=== PATIENT | female | born 1990 | race Caucasian/White ===

== ENCOUNTER → 2016-11-27 | Outpatient (CLI) | payer BC ==
[2016-11-27 15:06] LABS: GLUCOLA DOSE 50 Grams
[2016-11-27 15:33] LABS: PATIENT HEIGHT 154.9 cm
[2016-11-27 16:08] LABS: URINE TOTAL PROTEIN 9.2 mg/dl (0-11.9)
[2016-11-27 16:33] LABS: HEMATOCRIT 33.9 % (37-47); MEAN CELL VOLUME 92.4 fL (80-100); MEAN CORPUSCULAR HEMOGLOBIN 31.3 pg (25-34); MEAN CORPUSCULAR HGB CONC 33.9 g/dl (32-36); MEAN PLATELET VOLUME 9.9 fL (7.4-10.4); PLATELET COUNT 224 K/uL (130-400); RED BLOOD COUNT 3.67 M/uL (4.2-5.4); WHITE BLOOD COUNT 8.31 K/uL (4.8-10.8)
[2016-11-27 16:57] LABS: ALT/SGPT 19 U/L (12-78); AST/SGOT 11 U/L (15-37)
[2016-11-27 17:00] LABS: ALKALINE PHOSPHATASE 59 U/L (45-117)
[2016-11-27 17:07] LABS: URINE TOTAL PROTEIN CALC 110.4 mg/24 hr (0-149.1)
[2016-11-27 17:07] LABS: GTGD 50 Grams
[2016-11-27 17:08] LABS: CREATININE 0.5 mg/dl (0.6-1.2)
== END | disposition home or self-care (01) ==
LOC: C.LAB1850 14:51
PROVIDERS: ATTEND Obstetrics & Gynecology
DX: O09.299 Supervision of pregnancy with other poor reproductive or obstetric history, unspecified trimester (principal); O34.219 Maternal care for unspecified type scar from previous cesarean delivery

== ENCOUNTER → 2017-02-19 | Outpatient (CLI) | payer BC ==
[2017-02-19 16:58] LABS: GTGD 50 Grams
[2017-02-19 16:59] LABS: HEMATOCRIT 31.6 % (37-47)
[2017-02-19 18:37] LABS: URINE APPEARANCE CLEAR (CLEAR); URINE BILIRUBIN NEG (NEG); URINE COLOR YELLOW; URINE EPITHELIAL CELL AUTO >30 /lpf (0-5); URINE NITRITE NEG (NEG); URINE PH 6.5 (4.5-7.5); UROBILINOGEN NEG (NEG)
[2017-02-19 18:43] LABS: MANUAL MICROSCOPIC REQUIRED? NO; REVIEW REQ? NO
== END | disposition home or self-care (01) ==
LOC: C.LAB1850 15:19
PROVIDERS: ATTEND Obstetrics & Gynecology
DX: O09.293 Supervision of pregnancy with other poor reproductive or obstetric history, third trimester (principal)

== ENCOUNTER → 2017-04-16 | Outpatient (CLI) | payer OTHER | END | disposition home or self-care (01) | LOC: C.LABSPEC 17:31 | PROVIDERS: ATTEND Obstetrics & Gynecology | DX: O09.293 Supervision of pregnancy with other poor reproductive or obstetric history, third trimester (principal); Z3A.00 Weeks of gestation of pregnancy not specified ==

== ENCOUNTER 2017-04-30 15:10 | Outpatient (CLI) | payer OTHER ==
[~2017-04-30] VITALS: Ht 154.9 cm; Wt 76.5 kg
[2017-04-30 16:28] LABS: BASO % 0.2 %; BASO ABS # 0.02 K/uL (0-0.2); EOS % 0.7 %; EOS ABS # 0.08 K/uL (0-0.5); HEMATOCRIT 34.2 % (37-47); HEMOGLOBIN 11.7 g/dL (12.0-16.0); IG# 0.03 K/uL (0.00-0.02); LYMPH % 19.4 %; LYMPH ABS # 2.14 K/uL (1.2-3.4); MEAN CELL VOLUME 89.5 fL (80-100); MEAN CORPUSCULAR HEMOGLOBIN 30.6 pg (25-34); MEAN CORPUSCULAR HGB CONC 34.2 g/dl (32-36); MEAN PLATELET VOLUME 9.7 fL (7.4-10.4); MONO % 8.4 %; MONO ABS # 0.93 K/uL (0.11-0.59); NEUT ABS # 7.84 K/uL (1.4-6.5); PLATELET COUNT 236 K/uL (130-400); RED CELL DISTRIBUTION WIDTH CV 13.6 % (11.5-14.5); RED CELL DISTRIBUTION WIDTH SD 44.1 fL (36.4-46.3); WHITE BLOOD COUNT 11.04 K/uL (4.8-10.8)
[2017-04-30 16:54] LABS: ALBUMIN 2.6 gm/dl (3.4-5.0); ALT/SGPT 12 U/L (12-78); AST/SGOT 13 U/L (15-37); BLOOD UREA NITROGEN 13 mg/dl (7-18); CALCIUM 8.7 mg/dl (8.5-10.1); CARBON DIOXIDE 23 mmol/L (21-32); CREATININE 0.62 mg/dl (0.60-1.20); GLUCOSE 91 mg/dl (70-99); POTASSIUM 3.7 mmol/L (3.5-5.1); SODIUM 135 mmol/L (136-145); URIC ACID 5.7 mg/dl (2.6-7.2)
[2017-04-30 16:56] LABS: ALKALINE PHOSPHATASE 160 U/L (45-117); TOTAL PROTEIN 6.8 gm/dl (6.4-8.2)
[2017-04-30 17:08] VITALS: Ht 154.9 cm; Wt 76.5 kg
[2017-05-08] MEDS ORDERED: MISC-836 (10:18)
== END 2017-04-30 17:35 | disposition home or self-care (01) ==
LOC: C.LD 15:10 → C.OPB 15:10
PROVIDERS: ATTEND Obstetrics & Gynecology
DX: O16.3 Unspecified maternal hypertension, third trimester (principal); O62.9 Abnormality of forces of labor, unspecified; Z3A.38 38 weeks gestation of pregnancy

== ENCOUNTER 2017-05-06 00:36 | Inpatient (IN) | payer OTHER ==
[~2017-05-06] VITALS: Ht 154.9 cm; Wt 74.4 kg
[2017-05-06] MEDS ORDERED: LACTATED RINGER'S 1000ML 1,000 ML IV PRN ×2 (01:08→02:01)
[2017-05-06] MEDS ORDERED: PRENTAB26 PO (01:09)
[2017-05-06 01:11] VITALS: Ht 154.9 cm; Wt 74.4 kg
[2017-05-06 01:32] LABS: HEMATOCRIT 35.5 % (37-47); HEMOGLOBIN 12.3 g/dL (12.0-16.0); MEAN CELL VOLUME 89.6 fL (80-100); MEAN CORPUSCULAR HEMOGLOBIN 31.1 pg (25-34); MEAN CORPUSCULAR HGB CONC 34.6 g/dl (32-36); PLATELET COUNT 266 K/uL (130-400); RED CELL DISTRIBUTION WIDTH CV 13.5 % (11.5-14.5); WHITE BLOOD COUNT 12.46 K/uL (4.8-10.8)
[2017-05-06] MEDS ORDERED: LACTATED RINGER'S 1000ML 1,000 ML IV SCH (02:01)
[2017-05-06] MEDS: LACTATED RINGER'S 1000ML 1,000 ML IV SCH ×3 (02:07→11:34)
[2017-05-06] MEDS ORDERED: LACTATED RINGER'S 1000ML 500 ML IV PRN ×2 (06:48→10:14)
[2017-05-06] MEDS ORDERED: OXYTOCIN 30 UNITS/500ML NSS IV ONE (06:50)
[2017-05-06] MEDS ORDERED: OXYTOCIN 30 UNITS/500ML NSS IV PRN ×2 (07:00→18:30)
[2017-05-06] MEDS ORDERED: BUPIVACAINE 0.25% 30 ML VIAL ONE (08:05)
[2017-05-06] MEDS ORDERED: EpHEDrine SULFATE INJ 50 MG/ML AMP ONE (08:05)
[2017-05-06] MEDS ORDERED: FENTANYL 2MCG/ML ROPIV 1.25MG/ML 100ML BAG EPI ONE (08:05)
[2017-05-06] MEDS ORDERED: FENTANYL CITRATE INJ 50 MCG/1 ML 2 ML VIAL ONE (08:06)
[2017-05-06] MEDS ORDERED: NALOXONE HCL INJ 1 MG in SODIUM CHLORIDE 0.9% 1000ML 1,000 ML IV PRN ×4 (10:14)
[2017-05-06] MEDS ORDERED: DiphenhydrAMINE HCL 50 MG/ML VIAL IV PRN (10:15)
[2017-05-06] MEDS ORDERED: EpHEDrine SULFATE INJ 50 MG/ML AMP IV PRN (10:15)
[2017-05-06] MEDS ORDERED: NALBUPHINE HCL INJ 10 MG/ML AMP IV PRN (10:15)
[2017-05-06] MEDS ORDERED: METOCLOPRAMIDE HCL INJ 20 MG in SODIUM CHLORIDE 0.9% 50ML 50 ML IV PRN (10:15)
[2017-05-06] MEDS ORDERED: NALOXONE HCL INJ 0.4 MG/1 ML VIAL/CARP IV PRN (10:15)
[2017-05-06] MEDS ORDERED: ONDANSETRON INJ 2 MG/ML 2 ML VIAL IV PRN (10:15)
[2017-05-06] MEDS ORDERED: FENTANYL 2MCG/ML ROPIV 1.25MG/ML 100ML BAG EPI PRN (10:15)
[2017-05-06] MEDS ORDERED: PROMETHAZINE HCL INJ 25 MG in SODIUM CHLORIDE 0.9% 50ML 50 ML IV PRN (10:15)
[2017-05-06] MEDS ORDERED: HYDROCORTISONE ACETATE 25 MG SUPP PR PRN (18:30)
[2017-05-06] MEDS ORDERED: OXYCODONE/ACETAMINOPHEN 5-325 TAB PO PRN (18:30)
[2017-05-06] MEDS ORDERED: SUPERCREAM 0.870 % 15GM JAR EXT PRN (18:30)
[2017-05-06] MEDS ORDERED: BENZOCAINE 20% AER SPR 82.5 GM CAN EXT PRN (18:30)
[2017-05-06] MEDS ORDERED: LANOLIN OINT EXT PRN (18:30)
--- NOTE | 2017-05-06 18:48 | Anesthesia Procedure Note ---
Anesthesia Epidural Removal Nt Date & Time May 06, 2017 at 18:47 Vital Signs Pain Intensity: 7.0 Notes Mental Status: alert / awake / arousable, participated in evaluation Nausea / Vomiting: adequately controlled Pain: adequately controlled Airway Patency, RR, SpO2: stable & adequate BP & HR: stable & adequate Hydration State: stable & adequate Neuraxial Anesthesia: was administered Anesthetic Complications: no major complications apparent, pt satisfied with anesthetic care Epidural: removed without complications, with tip intact
--- NOTE | 2017-05-06 19:27 | DELIVERY SUMMARY ---
DATE OF OPERATION: 05/06/2017 PREDELIVERY DIAGNOSIS: 1. 27-year-old -0-0-1 at 39 weeks gestation with spontaneous rupture of membranes and spontaneous labor. 2. History of section x1. POSTDELIVERY DIAGNOSIS: Same. PROCEDURE: Vaginal after section and repair of second degree peroneal laceration. ESTIMATED BLOOD LOSS: 300 mL. COMPLICATIONS: None. FINDINGS: Viable female with Apgars 8 and 9, weight pending. Please see nursery records. DESCRIPTION OF DELIVERY: The patient progressed to complete with epidural anesthesia. She then began to push. She spontaneously vaginally delivered a viable from the cephalic presentation with the head in left occiput anterior position. There is a nuchal cord x2 that was easily reduced. There was a large amount of meconium at the time of delivery. The anterior shoulder followed by the posterior shoulder followed by the body were delivered. The baby was placed on mother's abdomen. The baby was stimulated and dried and the cord was doubly clamped and cut and the baby was handed off to the waiting pediatrics team. A cord segment was obtained for cord gases. The placenta was then delivered spontaneously intact with a 3-vessel cord. Pitocin was given. The uterus and vagina were cleared of all clots and debris. The bladder was emptied with a red rubber catheter. The cervix, vagina and perineum were inspected and the second degree perineal laceration was noted and repaired in standard fashion with 3-0 Vicryl. Rectal exam following the repair revealed no sutures or lacerations in the rectum. The patient and baby tolerated the delivery well and are recovering in the room in stable and good condition. I attest to the content of the Intraoperative Record and any orders documented therein. Any exception s are noted below.
[2017-05-06] MEDS: IBUPROFEN 600 MG TAB PO PRN (20:17)
[2017-05-06 20:50] VITALS: BP 122/79; PULSE 77; TEMP 36.6
[2017-05-07 00:45] VITALS: BP 112/72; PULSE 56; TEMP 36.5
[2017-05-07] MEDS: IBUPROFEN 600 MG TAB PO PRN ×4 (00:45→22:20)
[2017-05-07 05:05] VITALS: BP 147/83; PULSE 62; TEMP 36.4
--- NOTE | 2017-05-07 06:54 | OB/GYN Progress Note ---
LANGUAGE PATH Progress Note Date of Service May 07, 2017. Subjective conversation w/ patient, physical exam, chart review, lab review Ambulation: ambulating normally Voiding: no voiding problems Passing Gas: Yes Diet Tolerance: Regular Diet Lochia: Small Feeding Type: Breast Feeding Pain: cramping with feeding Review of Systems Constitutional: No fever, No chills Respiratory: No cough, No shortness of breath Cardiac: No chest pain, No palpitations Abdomen: No pain, No nausea, No vomiting Female : No dysuria Objective Vital Signs Date Time Temp Pulse Resp B/P (MAP) Pulse Ox O2 Delivery O2 Flow Rate FiO2 05/07/17 05:05 36.4 62 20 147/83 (104) Room Air 05/07/17 00:45 Room Air 05/07/17 00:45 36.5 56 20 112/72 (85) Room Air 05/06/17 20:50 36.6 77 20 122/79 (93) Room Air Physical Exam General Appearance: WELL-APPEARING, WD/WN, NO APPARENT DISTRESS Respiratory/Chest: lungs clear, normal breath sounds Cardiovascular: regular rate, rhythm, no murmur Abdomen: non tender, soft Fundus: Firm Extremities: normal inspection, no pedal edema, no calf tenderness Laboratory Results Last 24 Hours Test 05/07/17 06:43 Assessment and Plan Post- Day Number: 1 Continue Routine Care: now 2 vaginal delivery on 05/06/17 1750 @39.4 wk GBS-/A+/RI Pt doing well clinically. BP elevated overnight, 147/83. Hgb 12.3 on admission, today pending. No signs or symptoms of anemia. Plan; 1. Continue pp care; ambulate, support breast feeding, control pain, monitor lochia 2. Serial BP throughout the morning. Pt is Otherwise ready for discharge. Will discuss with Dr. Milton during attending rounds. Resident Physician Supervision Note: I was present with Dr. Perez during the history and exam. I discussed the case with the resident and agree with the findings and plan as documented in the note. Any exceptions or clarifications are listed here: PPD#1 doing well. Anticipate discharge tomorrow. Routine care. Documented By: Amber Milton
[2017-05-07 06:59] LABS: HEMATOCRIT 29.7 % (37-47)
[2017-05-07 08:00] VITALS: BP 111/74; PULSE 58; TEMP 36.3; O2SAT 96
[2017-05-07 12:00] VITALS: BP 120/81; PULSE 87; TEMP 36.6
[2017-05-07 15:45] VITALS: BP 123/79; PULSE 66; TEMP 36.3; O2SAT 99
[2017-05-07] MEDS ORDERED: BISACODYL 5 MG TABEC PO SCH (20:00)
[2017-05-07] MEDS: DOCUSATE SODIUM 100 MG CAP PO SCH ×2 (20:02→20:13)
[2017-05-08] VITALS: BP 117/68; PULSE 76; TEMP 36.7
--- NOTE | 2017-05-08 05:59 | Discharge Instructions ---
Discharge Instructions Date of Service May 08, 2017. Admission Reason for Admission: LABOR Discharge Discharge Diagnosis / Problem: Vaginal delivery Discharge Goals Goal(s): Routine recovery after delivery Medications Continue Dispensed Medications: supercream, dermaplast, tucks, lansinoh Activity Recommendations Activity Limitations: per Instructions/Follow-up section . Instructions / Follow-Up Instructions / Follow-Up ACTIVITY RECOMMENDATIONS: * Gradual return to full activity over the next 2-3 weeks. * No lifting - nothing heavier than baby over the next 2-3 weeks. * Do not engage in vigorous exercise, sexual activity or sports until cleared by your physician. * Do not drive or operate any motorized equipment until cleared by your physician. * You may shower/bathe daily. MEDICATIONS: For discomfort or pain, you may use Acetaminophen (Tylenol), Ibuprofen (Advil), or Naproxen (Aleve) following the package directions. For constipation you may use Colace following the package directions. BREAST CARE: If you are not breast feeding: * Wear a supportive bra 24 hours a day for one to two weeks. * Avoid stimulating your breasts and nipples as much as possible during the first few weeks after delivery. * When taking a shower, have the warm water hit your back, not breasts. * When your breasts feel full, apply ice packs. Usually three to four times a day helps ease the discomfort. * Take a mild pain medication (Tylenol / Motrin) when you are uncomfortable. If breast feeding: * Use breast milk to lubricate nipples. Lansinoh cream may be used for sore nipples. You do not need to remove cream prior to breast feeding. If using a different brand of cream, check the label for directions regarding removal of cream prior to nursing. * Wear a supportive bra. * If having problems with breasts or breast feeding, call a polymer materials consultant or your health care provider. EPISIOTOMY CARE: After delivery, if you have an episiotomy (stitches), the following steps will ease discomfort and aid healing. * For the first 24 hours after delivery, place ice packs next to your episiotomy to help reduce swelling. * After the first 24 hour-period, sitz baths, either portable or in the tub, are suggested. A shower with a shower arm sprayed over the episiotomy may be comforting. * Mandie care should be done after each voiding and bowel movement. Squirt warm water from a plastic bottle over the perineum (region of the body between the anus and urinary opening) and pat dry. * Use Dermoplast to ease discomfort. Shake container. [place] directly over the episiotomy. Place a Tucks on a clean sanitary pad next to your episiotomy. SPECIAL CARE INSTRUCTIONS: When you are discharged from the hospital, it is important for you to follow the instructions listed below: * During the first week at home, you should be able to care for yourself and your baby. In addition, the usual light household activities are encouraged. * Limit your activities to the way you feel. Do not try to clean the house or move furniture. Be sensible. * If you actively engage in sports and have done so up until the time of your delivery, you may resume these activities as soon as you feel able. This may take up to one month or even longer. Use good judgment. * Continue to take your vitamins for at least six weeks after the of your baby. * Your diet need not be limited unless you were on a special diet before your delivery. Breast-feeding mothers need around 2500 calories per day and at least 64-80 ounces of fluid per day (8 to 10 glasses). * You should eat foods from the four major food groups. Crash diets or fad diets are to be avoided. Eating lean meats, fresh fruits and vegetables, low-fat dairy products, high fiber foods and a regular exercise program, will help you get back to your pre- weight without putting your health at risk. * Constipation is sometimes a problem after delivery. Take a mild laxative as needed. If breast feeding, Milk of Magnesia is acceptable to use. You may use a suppository or Fleets enema if no episiotomy. * A daily shower or tub bath is suggested. Be sure to thoroughly and gently dry the perineum. * A bloody vaginal discharge will usually continue until around four weeks post . A small amount of bleeding may continue for as long as six weeks. Vaginal discharge changes from the bright red bleeding after delivery to pink then brownish and finally yellowish-pink before becoming white and disappearing. * Bleeding may increase with activity. Your first period may come in 4-8 weeks. If you are breast feeding, your period may be delayed even longer. * [place] (sex) can begin whenever both you and your partner feel comfortable and do not have any form of genital infection. It is recommended that you wait at least six weeks for internal and external healing to occur. If you have questions, please talk to your health care practitioner. A condom should be used to prevent infection and . * Foreplay, gentle intercourse and lubrication is very important the first several times to prevent pain. A water-based lubricant such as K-Y jelly or Astroglide may be used. * If you have RH negative blood and your baby is RH positive, you will receive RHOGAM by injection prior to discharge. The nurse will give you a card to keep with you that has the date and place that you received RHOGAM after delivery. * During your care, you had a Rubella screen done to check for the presence of rubella antibodies in your blood. If your test was negative, you will receive a Rubella vaccine prior to discharge. This vaccine may cause a fever, soreness at the injection site and flu-like symptoms. If these symptoms persist, notify your health care practitioner. is not advised for one month after a Rubella vaccine. * Verbalizes understanding of car seat law as reviewed with patient nursing. * Car Seat hand-out given and reviewed with patient by nursing. * Shaken baby information reviewed with patient by nursing. Call you doctor if: * Heavy bleeding (saturating several pads an hour) or passing clots the size of your fist. * A fever >101 degrees F (38.3 degrees C) on two occasions four hours apart and /or chills. * Unusual pain in the pelvic or vaginal areas. * "Baby Blues" lasting longer than two weeks. If you have any questions or concerns, call your health care practitioner at . FOLLOW UP VISIT: * Please call the office at to schedule a 6 week examination. It is important you keep this appointment. It is important for you to make arrangements for either yearly or twice yearly check-ups thereafter. Current Hospital Diet Patient's current hospital diet: Regular OB Diet Discharge Diet Recommended Diet: Regular OB Diet Pending Studies Studies pending at discharge: no Medical Emergencies . Who to Call and When: Medical Emergencies: If at any time you feel your situation is an emergency, please call 911 immediately. . Non-Emergent Contact Non-Emergency issues call your: [facility] [employer] . . "Provider Documentation" section prepared by Kristofer Perez. . VTE Core Measure Inpt VTE Proph given/why not?: Treatment not indicated
--- NOTE | 2017-05-08 06:03 | OB/GYN Progress Note ---
PETROLE[employer] GEOLOGIST Progress Note Date of Service May 08, 2017. Subjective conversation w/ patient, physical exam, chart review, lab review Ambulation: ambulating normally Voiding: no voiding problems Passing Gas: Yes Diet Tolerance: Regular Diet Lochia: Small Feeding Type: Breast Feeding Review of Systems Constitutional: No fever, No chills Respiratory: No cough, No shortness of breath Cardiac: No chest pain Abdomen: No pain, No nausea, No vomiting Female : No dysuria Objective Vital Signs Date Time Temp Pulse Resp B/P (MAP) Pulse Ox O2 Delivery O2 Flow Rate FiO2 05/08/17 00:00 36.7 76 18 117/68 (84) Room Air 05/08/17 00:00 Room Air 05/07/17 15:45 99 Room Air 05/07/17 15:45 36.3 66 18 123/79 (94) 99 Room Air 05/07/17 12:00 36.6 87 18 120/81 (94) Room Air 05/07/17 08:00 Room Air 05/07/17 08:00 36.3 58 18 111/74 (86) 96 Room Air Physical Exam General Appearance: WELL-APPEARING, WD/WN, NO APPARENT DISTRESS Respiratory/Chest: normal breath sounds, no respiratory distress Cardiovascular: regular rate, rhythm, no murmur Abdomen: non tender, soft Fundus: Firm Extremities: no pedal edema, no calf tenderness Laboratory Results Last 24 Hours Test 05/07/17 06:43 Hemoglobin 10.0 g/dL Hematocrit 29.7 % Assessment and Plan Post- Day Number: 2 Continue Routine Care: now 2 vaginal delivery on 05/06/17 1750 @39.4 wk GBS-/A+/RI. Pt doing well clinically. Hgb 12.3 on admission, 10 on 05/07. No signs or symptoms of anemia. Vitals reviewed and WNL. Plan; 1. Continue pp care; ambulate, support breast feeding, control pain, monitor lochia 2. Discharge instructions discussed. Dc today. Resident Physician Supervision Note: I interviewed and examined the patient. Discussed with Dr. Perez and agree with findings and plan as documented in the note. Any exceptions or clarifications are listed here: Doing well, plan d/c, instructions given. Documented By: Yolande Bravo
[2017-05-08] MEDS ORDERED: BISACODYL 10 MG SUPP PR PRN (07:00)
[2017-05-08 08:10] VITALS: BP 102/65; PULSE 80; TEMP 36.4
[2017-05-08] MEDS: DOCUSATE SODIUM 100 MG CAP PO SCH (08:20)
[2017-05-08 10:00] VITALS: BP_DIAS 65; PULSE 80; TEMP 36.4
[2017-05-08] MEDS ORDERED: MISC-696 (10:18)
== END 2017-05-08 10:25 | disposition home or self-care (01) | DRG 775 ==
LOC: C.LD 00:36 → C.OPB 00:36 → C.LD 01:10 → C.OBG 20:32 → EDSTATUS 05-09 00:35
PROVIDERS: ADMIT Obstetrics & Gynecology; ATTEND Obstetrics & Gynecology
PROC: 10E0XZZ Delivery of Products of Conception, External Approach (ICD-10-PCS; principal; 2017-05-06)
PROC: 0KQM0ZZ Repair Perineum Muscle, Open Approach (ICD-10-PCS; principal; 2017-05-06)
DX: O70.1 Second degree perineal laceration during delivery (principal); O77.0 Labor and delivery complicated by meconium in amniotic fluid; O69.81X0 Labor and delivery complicated by cord around neck, without compression, not applicable or unspecified; Z3A.39 39 weeks gestation of pregnancy; Z37.0 Single live birth

== ENCOUNTER 2019-06-27 01:44 | Inpatient (IN) ==
[2019-06-27] MEDS ORDERED: OXYTOCIN 30 UNITS/500 ML BAG IV PRN ×3 (02:21→09:01)
[2019-06-27] MEDS ORDERED: fentaNYL 2MCG/ML ROPIV 1.25MG/ML 100 ML BAG EPI ONE (02:36)
[2019-06-27] MEDS ORDERED: fentaNYL citrate 100 MCG/2 ML VIAL ONE (02:36)
[2019-06-27] MEDS ORDERED: ePHEDrine sulfate 50 MG/ML AMP ONE (02:36)
[2019-06-27] MEDS ORDERED: BUPIVACAINE 0.25% 30 ML VIAL ONE (02:36)
[2019-06-27] MEDS: LACTATED RINGER'S 1,000 ML IV PRN ×2 (02:38→05:27)
[2019-06-27 02:45] LABS: Hematocrit (blood only) 34.8 % (37-47); Hemoglobin 11.3 g/dL (12.0-16.0); Mean Corpuscular Hemoglobin 28.8 pg (25-34); Mean Corpuscular Volume 88.8 fL (80-100); Platelet Count 254 K/uL (130-400); RDW Coefficient of Variation 15.3 % (11.5-14.5); RDW Standard Deviation 49.3 fL (36.4-46.3); Red Blood Count 3.92 M/uL (4.2-5.4); White Blood Count 9.38 K/uL (4.8-10.8)
[2019-06-27 03:03] LABS: Mean Corpuscular Hgb Conc 32.5 g/dL (32-36)
--- NOTE | 2019-06-27 03:28 | Anesthesiology Consultation ---
Date of Service June 27, 2019 Assessment & Plan Chart Review Chart Review: Acceptable Risk for Labor Epidural Consults Requested none History Height/Weight Height: 5 ft 1 in Weight: 81.647 kg Allergies Allergy/AdvReac Type Severity Reaction Status Date / Time No Known Allergies Allergy Verified 06/23/19 15:47 Medications Home Medications Medication Instructions Recorded Confirmed Last Taken acetaminophen 325 mg tablet 650 mg/kg PO Q4 PRN tab 11/30/18 06/27/19 06/26/19 09:00 aspirin 81 mg tablet,delayed 81 mg PO DAILY 04/07/19 06/27/19 06/26/19 09:00 release ferrous sulfate [Iron (ferrous 325 mg PO DAILY 06/27/19 06/27/19 06/26/19 09:00 sulfate)] pedi multivit no.7-folic acid 2 mcg PO DAILY 06/27/19 06/27/19 06/26/19 09:00 [Flintstones Tab Chew] Active Medications Generic Name Dose Route Start Last Admin Trade Name Freq PRN Reason Stop Dose Admin Lactated Ringer's 1,000 mls @ 125 mls/hr 06/27/19 02:21 06/27/19 03:20 Lr IV 06/29/19 02:20 125 mls/hr .Q8H PRN Infusion L&D Protocol Protocol Past Medical History Medical History History of anxiety History of migraine History of pre-eclampsia History of varicella Past Family History Family History Grandmother (Maternal) Diabetes Mother Hypertension Thyroid disease Brother Thyroid disease Past Surgical History Surgical History S/P section S/P wisdom tooth extraction Social History Smoking Status: Former smoker tobacco type: cigarettes Hx Alcohol Use: No Hx Substance Use: No Physical Exam Vital Signs Last Vital Signs Temp 36.4 C L 06/27/19 02:00 Pulse 65 06/27/19 03:26 Resp 18 06/27/19 03:25 BP 126/79 06/27/19 03:26 Pulse Ox 97 06/27/19 03:23 Testing Laboratory Results 06/27/19 02:28
[2019-06-27] MEDS ORDERED: DiphenhydrAMINE HCL 50 MG/ML VIAL IV PRN (03:30)
[2019-06-27] MEDS ORDERED: ONDANSETRON INJ 2 MG/ML 2 ML VIAL IV PRN (03:30)
[2019-06-27] MEDS ORDERED: NALOXONE HCL 1 MG in SODIUM CHLORIDE 0.9% 1000ML 1,000 ML IV PRN (03:30)
[2019-06-27] MEDS ORDERED: ePHEDrine sulfate 50 MG/ML AMP IV PRN (03:30)
[2019-06-27] MEDS ORDERED: NALOXONE HCL 0.4 MG/1 ML VIAL/CARP IV PRN (03:30)
[2019-06-27] MEDS ORDERED: NALBUPHINE HCL INJ 10 MG/ML AMP IV PRN (03:30)
[2019-06-27] MEDS ORDERED: fentaNYL 2MCG/ML ROPIV 1.25MG/ML 100 ML BAG EPI PRN (03:30)
--- NOTE | 2019-06-27 03:54 | History & Physical Report ---
Date of Service June 27, 2019 Assessment & Plan (1) Supervision of normal intrauterine in multigravida: (2) History of : - heart rate tracing, category 2 with accelerations and variability -Patient comfortable with epidural -Contractions somewhat spaced after epidural -Pitocin augmentation initiated -Anticipate vaginal delivery History of Present Illness Chief Complaint: labor check Primary Care Provider: Renny Dixon The patient is a 29-year-old 3 para 2, with an EDC of 30 June, at 39+ weeks gestational age, who presents for labor. Patient has been having prodromal contractions for the last 24 to 36 hours. The contractions became strong at approximately 1800 hrs. on 26 June. Patient denied rupture of membranes or vaginal bleeding. The patient is a previously successful . The patient's first delivery was a section. Her last was a successful vaginal delivery after section. The patient desires a repeat . The patient has had a benign course. Her blood type is A+, antibody negative, rubella immune, hepatitis B negative, she had a negative cystic fibrosis and SMA screening, negative cell free DNA screening, negative maternal serum AFP, normal 1 hour Glucola x2, and a negative third trimester beta strep culture. Allergies Allergy/AdvReac Type Severity Reaction Status Date / Time No Known Allergies Allergy Verified 06/23/19 15:47 Home Medications Home Medications Medication Instructions Recorded Confirmed Type acetaminophen 325 mg tablet 650 mg/kg PO Q4 PRN tab 11/30/18 06/27/19 History aspirin 81 mg tablet,delayed 81 mg PO DAILY 04/07/19 06/27/19 History release ferrous sulfate [Iron (ferrous 325 mg PO DAILY 06/27/19 06/27/19 History sulfate)] pedi multivit no.7-folic acid 2 mcg PO DAILY 06/27/19 06/27/19 History [Flintstones Tab Chew] Patient History Medical History History of anxiety History of migraine History of pre-eclampsia History of varicella Surgical History S/P section S/P wisdom tooth extraction Family History Grandmother (Maternal) Diabetes Mother Hypertension Thyroid disease Brother Thyroid disease Social History (Updated 12/06/18 @ 15:21 by Saray José) Preferred Language: Mongolian Communication Ability: Effective Beliefs That Will Affect Care: None marital status: Single Current Living Situation: Significant Other Other Information That Helps Us Care for You: No Feels Safe at Home: Yes Safety Concerns: Feels Safe At This Time Smoking Status: Former smoker Tobacco Type: cigarettes ; Hx Alcohol Use: No Hx Substance Use: No Physical Exam Constitutional: WD/WN, vitals as above Respiratory: Auscultation: lungs clear to auscultation bilaterally Cardiovascular: RRR, no murmur, no edema Extremities: no calf tenderness Gastrointestinal (Abdomen): Gravid, vertex, positive heart tones, estimated weight of 7 and half pounds Genitourinary: Cervix: 5 to 6 cm / 80%/-2, artificial rupture membranes clear fluid Results & Data Vital Signs (Past 12 Hours) Vital Signs Temp Pulse Resp BP Pulse Ox 06/27/19 03:48 66 95 06/27/19 03:43 74 100 06/27/19 03:40 70 93 06/27/19 03:39 18 06/27/19 03:38 63 121/53 L 96 06/27/19 03:36 56 L 132/59 L 06/27/19 03:34 59 L 125/70 06/27/19 03:33 84 96 06/27/19 03:32 68 123/62 06/27/19 03:30 91 H 18 127/66 06/27/19 03:28 69 129/69 99 06/27/19 03:26 65 126/79 06/27/19 03:25 18 06/27/19 03:24 69 126/73 06/27/19 03:23 77 97 06/27/19 03:22 75 123/71 06/27/19 03:20 67 18 120/63 06/27/19 03:18 74 122/65 98 06/27/19 03:15 70 119/81 06/27/19 03:14 68 18 119/77 06/27/19 03:13 83 99 06/27/19 03:08 68 98 06/27/19 03:03 67 98 06/27/19 02:58 74 98 06/27/19 02:53 68 97 06/27/19 02:48 66 97 06/27/19 02:43 67 98 06/27/19 02:03 74 128/80 06/27/19 02:00 97.5 F L 18 Coding Level of Care Code None Diagnoses Supervision of normal intrauterine in multigravida Z34.80 History of Z98.891
[2019-06-27] MEDS ORDERED: ACETAMINOPHEN W/CODEINE #3 1 TAB PO PRN (08:57)
[2019-06-27] MEDS ORDERED: ACETAMINOPHEN 325 MG TAB PO PRN (08:57)
[2019-06-27] MEDS ORDERED: HYDROCORTISONE ACETATE 25 MG SUPP PR PRN (09:01)
[2019-06-27] MEDS ORDERED: bisacodyL 10 MG SUPP PR PRN (09:01)
[2019-06-27] MEDS ORDERED: SUPERCREAM 0.870% 15 GM JAR EXT PRN (09:01)
[2019-06-27] MEDS ORDERED: BENZOCAINE 20% AER SPR 82.5 GM CAN EXT PRN (09:01)
[2019-06-27] MEDS ORDERED: DIPHTHERIA/TETANUS/PERTUSSIS 0.5 ML SYR/VIAL IM ONE (09:01)
--- NOTE | 2019-06-27 09:02 | Delivery Summary ---
Vaginal Delivery Summary Date of Service June 27, 2019 Vaginal Delivery Summary Pre-operative Diagnosis: at 39 4/7 weeks hx of previous c/s with successful labor Post-operative Diagnosis: same Procedure: arom epidural EBL: 350cc Anesthesia: epidural Procedure: The patient pushed for 10 min to deliver a viable male in MATEO position. The nose and mouth were bulb suctioned on the perineum and the rest of the was then delivered without difficulty. The baby was vigorous. The nose and mouth were again bulb suctioned and the was placed in the maternal abdomen for drying and attention. Cord was clamped and cut at one minute of life. Cord blood and segment obtained. Placenta delivered spontaneous, intact with a three vessel cord. Cervix/sulci/rectum and perineum intact. Hemostasis obtained with dilute pitocin and fundal massage. Apgars were 8/9 . Mother and baby doing well at the end of the delivery. [facility] [place] Vaginal Delivery Charge Vaginal Delivery Codes: 96694 global code for the antepartum, delivery, and post-
--- NOTE | 2019-06-27 09:43 | Anesthesiology Progress Note ---
Date of Service June 27, 2019 Anesthesia Post Procedure Vital Signs Vital Signs: Temp Pulse Resp BP Pulse Ox 06/27/19 09:40 89 128/63 06/27/19 09:26 78 130/57 L 06/27/19 09:11 101 H 149/66 H 06/27/19 08:55 98 H 144/64 H 06/27/19 08:52 105 H 92 06/27/19 08:48 98 H 97 06/27/19 08:43 93 H 89 L 06/27/19 08:38 124 H 97 06/27/19 08:33 115 H 97 06/27/19 08:28 75 99 06/27/19 08:25 94 H 144/75 H 06/27/19 08:23 97 H 99 06/27/19 08:19 100 H 92 06/27/19 08:18 100 H 98 06/27/19 08:13 98 H 96 06/27/19 08:10 105 H 150/119 H 06/27/19 08:08 91 H 96 06/27/19 08:03 81 94 06/27/19 07:58 76 97 06/27/19 07:55 90 147/80 H 06/27/19 07:53 111 H 96 06/27/19 07:51 85 94 06/27/19 07:48 69 97 06/27/19 07:43 66 96 06/27/19 07:42 80 94 06/27/19 07:38 97 H 97 06/27/19 07:35 74 93 06/27/19 07:34 77 146/74 H 06/27/19 07:33 73 98 06/27/19 07:28 91 H 97 06/27/19 07:24 65 144/80 H 06/27/19 07:23 68 94 06/27/19 07:18 96 H 95 06/27/19 07:16 72 123/60 06/27/19 07:13 76 97 06/27/19 07:11 79 94 06/27/19 07:08 93 H 94 06/27/19 07:03 36.7 C 80 20 99 06/27/19 07:00 85 94 06/27/19 06:58 71 98 06/27/19 06:55 70 132/66 06/27/19 06:54 69 93 06/27/19 06:53 71 94 06/27/19 06:48 74 93 06/27/19 06:45 65 112/69 06/27/19 06:43 106 H 83 L 06/27/19 06:38 81 98 06/27/19 06:35 66 118/73 06/27/19 06:33 83 96 06/27/19 06:28 89 96 06/27/19 06:23 64 122/60 96 06/27/19 06:18 85 97 06/27/19 06:14 64 120/69 06/27/19 06:13 79 98 06/27/19 06:09 63 94 06/27/19 06:08 69 96 06/27/19 06:05 63 114/65 06/27/19 06:03 61 96 06/27/19 05:58 71 96 06/27/19 05:54 88 144/64 H 06/27/19 05:53 94 H 100 06/27/19 05:52 91 H 93 06/27/19 05:51 18 06/27/19 05:48 60 96 06/27/19 05:46 74 94 06/27/19 05:43 74 95 06/27/19 05:41 73 94 06/27/19 05:38 62 97 06/27/19 05:34 65 113/61 06/27/19 05:33 62 97 06/27/19 05:31 18 06/27/19 05:30 62 94 06/27/19 05:28 76 100 06/27/19 05:23 64 115/61 98 06/27/19 05:18 65 97 06/27/19 05:14 66 116/56 L 06/27/19 05:13 61 96 06/27/19 05:08 73 98 06/27/19 05:04 62 127/64 06/27/19 05:03 69 97 06/27/19 05:01 36.9 C 18 06/27/19 04:58 61 96 06/27/19 04:55 68 133/77 06/27/19 04:53 64 96 06/27/19 04:52 70 94 06/27/19 04:48 62 96 06/27/19 04:47 60 94 06/27/19 04:44 18 125/69 06/27/19 04:43 81 96 06/27/19 04:42 90 94 06/27/19 04:38 66 99 06/27/19 04:35 18 06/27/19 04:34 67 120/70 94 06/27/19 04:33 60 95 06/27/19 04:29 61 94 06/27/19 04:28 67 97 06/27/19 04:24 59 L 129/65 93 06/27/19 04:23 61 96 06/27/19 04:18 66 96 06/27/19 04:16 61 18 94 06/27/19 04:14 58 L 123/72 06/27/19 04:13 62 97 06/27/19 04:08 65 97 06/27/19 04:07 68 94 06/27/19 04:03 56 L 128/62 96 06/27/19 04:01 18 06/27/19 03:59 18 06/27/19 03:58 65 96 06/27/19 03:54 84 129/63 92 06/27/19 03:53 70 96 06/27/19 03:48 66 95 06/27/19 03:46 18 06/27/19 03:43 36.6 C 74 18 100 06/27/19 03:40 70 18 93 06/27/19 03:39 18 06/27/19 03:38 63 121/53 L 96 06/27/19 03:36 56 L 132/59 L 06/27/19 03:35 18 06/27/19 03:34 59 L 125/70 06/27/19 03:33 84 96 06/27/19 03:32 68 123/62 06/27/19 03:30 91 H 18 127/66 06/27/19 03:28 69 129/69 99 06/27/19 03:26 65 126/79 06/27/19 03:25 18 06/27/19 03:24 69 126/73 06/27/19 03:23 77 97 06/27/19 03:22 75 123/71 02 03:20 67 18 120/63 06/27/19 03:18 74 122/65 98 02 03:15 70 119/81 06/27/19 03:14 68 18 119/77 06/27/19 03:13 83 99 06/27/19 03:08 68 98 06/27/19 03:03 67 98 06/27/19 02:58 74 98 06/27/19 02:53 68 97 06/27/19 02:48 66 97 06/27/19 02:43 67 98 06/27/19 02:03 74 128/80 06/27/19 02:00 36.4 C L 18 Pain Intensity Bilateral Abdomen: Pain Intensity: 7 Transfer of Care Handoff Completed per policy Notes Mental Status: alert / awake / arousable and participated in evaluation Patient Amnestic to Procedure: Yes Nausea / Vomiting: adequately controlled Pain: adequately controlled Airway Patency, RR, SpO2: stable & adequate BP & HR: stable & adequate Hydration State: stable & adequate Neuraxial Anesthesia: was administered and sensory block is resolving Anesthetic Complications: no major complications apparent
[2019-06-27] MEDS: IBUPROFEN 600 MG TAB PO PRN (20:57)
[2019-06-27] MEDS: DOCUSATE SODIUM 100 MG CAP PO SCH (20:57)
[2019-06-28] MEDS: IBUPROFEN 600 MG TAB PO PRN ×3 (01:11→15:29)
--- NOTE | 2019-06-28 06:15 | Obstetrical Progress Note ---
Date of Service <Richard Ibarra MD - Last Filed: 06/28/19 06:15> June 28, 2019 Assessment & Plan <Richard Ibarra MD - Last Filed: 06/28/19 06:15> (1) History of : PPD#1 - continue routine care - encourage ambulation, and oral intake - after discharge will have follow-up in 6 weeks Subjective <Richard Ibarra MD - Last Filed: 06/28/19 06:15> Ms. Quick is a 29 y/o female ; PPD #1 following vaginal delivery after previous section; doing well this morning; having minimal abdominal cramping/pain; voiding well; tolerating meals overnight; and able to ambulate some; some persistent spotting with intermittent improvement this morning. Review of Systems Constitutional: denies fever; chills; sweats; headache Respiratory: denies shortness of breath, difficulty breathing Cardiac: denies chest pain; palpitations; chest pressure Breast: denies breast pain : denies dysuria Physical Exam <Richard Ibarra MD - Last Filed: 06/28/19 06:15> General: alert; oriented; no acute distress Cardiac: RRR; no m/g/r Respiratory: CTAB a/p; no wheezes/rales/rhonchi; no increased work of breathing; symmetrical chest rise; no respiratory distress Abdomen: soft; NT/ND; bowel sounds positive Uterus: uterine fundus firm; palpable 2cm below umbilicus Lower extrem: no lower extremity edema or swelling; no deep calf pain; Aleah's sign negative b/l Results & Data <Richard Ibarra MD - Last Filed: 06/28/19 06:15> Vital Signs (Past 12 Hours) Vital Signs Temp Pulse Pulse Resp BP Pulse Ox 06/28/19 04:10 36.4 C L 72 18 115/74 97 06/27/19 23:25 36.4 C L 56 L 16 113/62 97 06/27/19 20:35 36.8 C 58 L 20 116/69 98 Medications Administered Current Inpatient Medications Acetaminophen (Tylenol) 650 mg PO Q6H PRN PRN Reason: Pain/NGUYEN/Fever Stop: 07/27/19 08:56 Acetaminophen/Codeine Phosphate (Tylenol W/Codeine #3) 1 - 2 tab PO Q4H PRN PRN Reason: Pain not controlled with... Stop: 07/27/19 08:56 Benzocaine (Dermoplast Pain Relieving [place]) 1 appln EXT PRN PRN PRN Reason: Perineal Discomfort Stop: 07/27/19 09:00 Bisacodyl (Dulcolax) 5 mg PO 1999 [facility] Stop: 06/28/19 20:01 Bisacodyl (Dulcolax) 10 mg MD DAILY PRN PRN Reason: No BM on 2nd post- day Stop: 07/27/19 09:00 Cocaine HCl (Supercream 0.870%) 1 gm EXT BID PRN PRN Reason: Hemorrhoidal Inflammation Stop: 07/11/19 09:00 Docusate Sodium (Colace) 100 mg PO DAILY@08,21 [facility] Stop: 07/27/19 20:59 Last Admin: 06/27/19 20:57 Dose: 100 mg Documented by: Hydrocortisone (Anusol Hc) 25 mg MD BID PRN PRN Reason: Hemorrhoidal Inflammation Stop: 07/27/19 09:00 Oxytocin (Pitocin) 30 units in 500 mls @ 333.333 mls/hr IV .Q1H30M PRN; Pr otocol PRN Reason: Bleeding Control Stop: 07/27/19 09:00 Last Titration: 06/27/19 11:01 Dose: Infused Documented by: Ibuprofen (Motrin) 600 mg PO Q4H PRN PRN Reason: Pain/NGUYEN/Cramping/Fever Stop: 07/27/19 08:56 Last Admin: 06/28/19 01:11 Dose: 600 mg Documented by: Prenat Multivit/Ada/Iron/Folic Ac ( Vitamin) 1 tab PO DAILY@08 [facility] Stop: 07/28/19 07:59 <Yolande Bravo MD, FACOG - Last Filed: 06/28/19 07:23> Co-Signing Physician Notes Resident Physician Supervision Note: I interviewed and examined the patient. Discussed with Dr. Ibarra and agree with findings and plan as documented in the note. Any exceptions or clarifications are listed here: Doing well. Routine care. Documented By: Yolande Bravo MD, FACOG Resident Activity Tracking <Richard Ibarra MD - Last Filed: 06/28/19 06:15> Resident Involvement: Resident Care Provided Care Provided: [facility] [place] [facility]
[2019-06-28 07:28] LABS: Hematocrit (blood only) 29.9 % (37-47); Hemoglobin 9.8 g/dL (12.0-16.0)
[2019-06-28] MEDS ORDERED: PRENATAL VITAMIN 1 TAB PO SCH (08:00)
[2019-06-28] MEDS: DOCUSATE SODIUM 100 MG CAP PO SCH (08:29)
[2019-06-28] MEDS ORDERED: bisacodyL 5 MG TABEC PO SCH (20:00)
== END 2019-06-28 17:00 | disposition home or self-care (01) | DRG 807 ==
LOC: OPB 01:44 → 4S1 01:49 → 4S2 11:11